=== PATIENT | female | born 1960 | race Caucasian/White ===

== ENCOUNTER 2016-10-06 16:16 | Emergency (ER) | payer MEDICAID ==
[~2016-10-06 16:16] MED LIST: LEVOTHYROXIN0.125 M2 PO; LOTENSIN10 MG PO; MOTRIN800 MG PO
[2016-10-06 19:17] VITALS: BP 134/87
== END 2016-10-06 19:17 | disposition home or self-care (01) ==
LOC: ED 16:16
DX: S13.4XXA Sprain of ligaments of cervical spine, initial encounter (principal); S40.021A Contusion of right upper arm, initial encounter; S90.31XA Contusion of right foot, initial encounter; S60.211A Contusion of right wrist, initial encounter; D32.0 Benign neoplasm of cerebral meninges; R07.81 Pleurodynia; I10 Essential (primary) hypertension; E07.9 Disorder of thyroid, unspecified; V89.2XXA Person injured in unspecified motor-vehicle accident, traffic, initial encounter; Y93.89 Activity, other specified; Y99.8 Other external cause status; Y92.89 Other specified places as the place of occurrence of the external cause
CPT/HCPCS: Q0162

== ENCOUNTER 2017-02-14 21:56 | Emergency (ER) | payer MEDICAID ==
[2017-02-15 00:25] VITALS: BP 161/99
== END 2017-02-15 00:25 | disposition home or self-care (01) ==
LOC: ED 21:56
DX: G43.909 Migraine, unspecified, not intractable, without status migrainosus (principal); I10 Essential (primary) hypertension; Z90.710 Acquired absence of both cervix and uterus
CPT/HCPCS: J0780; J1885; J3030

== ENCOUNTER 2017-03-16 17:32 | Emergency (ER) | payer OTHER ==
[2017-03-16 19:37] VITALS: BP 119/74
== END 2017-03-16 19:37 | disposition home or self-care (01) ==
LOC: ED 17:32
DX: J20.9 Acute bronchitis, unspecified (principal); I10 Essential (primary) hypertension; Z91.02 Food additives allergy status
CPT/HCPCS: J7512; J7613

== ENCOUNTER 2019-01-29 13:13 | Emergency (ER) | payer OTHER ==
[~2019-01-29] VITALS: Ht 160 cm; Wt 78.5 kg
[2019-01-29 13:36] VITALS: Ht 160 cm; Wt 78.5 kg
[2019-01-29 14:19] LABS: BASOPHIL % 0.3 % (0-2); PLATELET COUNT 261 x10^3mcL (130-400); RED CELL DISTRIBUTION WIDTH 14.1 % (11.5-14.5)
[2019-01-29 14:34] LABS: CARBON DIOXIDE 33.3 mmol/L (21-32); CHLORIDE SERUM 104 mmol/L (98-107); CREATININE SERUM 0.7 mg/dL (0.6-1.0); GFR1 > 60 mL/min; GLUCOSE SERUM 95 mg/dL (74-106); POTASSIUM SERUM 3.6 mmol/L (3.5-5.1); SODIUM SERUM 142 mmol/L (136-145)
[2019-01-29 14:39] LABS: ALBUMIN 3.9 g/dL (3.4-5.0); ALKALINE PHOSPHATASE 89 U/L (46-116); AMYLASE 89 U/L (25-115); AST/SGOT 17 U/L (15-37); BILIRUBIN TOTAL 0.51 mg/dL (0.20-1.00); LIPASE 132 IU/L (73-393); TOTAL PROTEIN, SERUM 7.8 g/dL (6.4-8.2)
[2019-01-29 15:40] LABS: ALT/SGPT 34 U/L (14-59)
[2019-01-29 16:31] VITALS: BP 124/84
== END 2019-01-29 16:31 | disposition home or self-care (01) ==
LOC: ED 13:13
PROVIDERS: Emergency Medicine
DX: R10.816 Epigastric abdominal tenderness (principal); R11.2 Nausea with vomiting, unspecified; R19.7 Diarrhea, unspecified; R42 Dizziness and giddiness; I10 Essential (primary) hypertension; G43.909 Migraine, unspecified, not intractable, without status migrainosus; Z90.710 Acquired absence of both cervix and uterus; Z90.89 Acquired absence of other organs; Z91.018 Allergy to other foods
CPT/HCPCS: 36415; J1885

== ENCOUNTER 2019-04-23 20:21 | Emergency (ER) | payer OTHER ==
[~2019-04-23] VITALS: Ht 160 cm; Wt 79.8 kg
[2019-04-23 20:39] VITALS: BP 149/87; Ht 160 cm; Wt 79.8 kg
== END 2019-04-23 23:44 | disposition left against medical advice (07) ==
LOC: ED 20:21
DX: Z53.21 Procedure and treatment not carried out due to patient leaving prior to being seen by health care provider (principal)

== ENCOUNTER 2019-04-24 13:09 | Emergency (ER) | payer OTHER ==
[~2019-04-24] VITALS: Ht 160 cm; Wt 80.3 kg
[2019-04-24 13:23] VITALS: Ht 160 cm; Wt 80.3 kg
[2019-04-24 17:04] VITALS: BP 144/90
== END 2019-04-24 17:04 | disposition home or self-care (01) ==
LOC: ED 13:09
DX: G43.909 Migraine, unspecified, not intractable, without status migrainosus (principal); R42 Dizziness and giddiness; I10 Essential (primary) hypertension; Z90.710 Acquired absence of both cervix and uterus; Z90.89 Acquired absence of other organs
CPT/HCPCS: J1885; J2765; J7030